=== PATIENT | female | born 1975 | race Caucasian/White ===

== ENCOUNTER 2020-03-29 15:50 | Emergency (ER) | payer OTHER ==
[2020-03-29 16:34] LABS: BASOPHIL 0.6 % (0-2); HCT 37.7 % (37.0-47.0); HGB 11.1 g/dl (12.5-16.0); LYMPHOCYTE 16.1 % (15-48); MCH 22.7 pg (25.0-31.0); MCHC 29.4 g/dL (32.0-36.0); MCV 77.3 fL (78.0-100.0); MONOCYTE 8.5 % (0-12); MPV 9.8 fL (6.0-9.5); NEUTROPHIL 68.5 % (41-80); NRBC 0; PLT 511 K/uL (150-400); RBC 4.88 M/uL (4.20-5.40); RDW 20.5 % (11.5-14.0); WBC 11.7 K/uL (4.0-10.5)
[2020-03-29 16:39] LABS: PROTHROMBIN TIME 12.5 SECONDS (11.4-13.6); PTT 29.9 SECONDS (22.2-34.7)
[2020-03-29 17:13] LABS: BUN/CREAT RATIO (CALC) 12.8 RATIO; CREATININE 0.78 mg/dL (0.51-0.95); POTASSIUM 4.4 mmol/L (3.5-5.1)
== END 2020-03-29 18:51 | disposition home or self-care (01) ==
LOC: FER 15:50
PROVIDERS: Emergency Medicine
DX: R07.89 Other chest pain (principal); J45.909 Unspecified asthma, uncomplicated; Z79.51 Long term (current) use of inhaled steroids; Z20.822 Contact with and (suspected) exposure to COVID-19
CPT/HCPCS: 36415; 71045; 71275; 80048; 84484; 85025; 85610; 85730; 93005; J2270; J2405; Q9967; U0002